=== PATIENT | female | born 1985 | race Caucasian/White ===

== ENCOUNTER 2022-09-14 03:34 | Emergency (ER) | payer OTHER ==
[~2022-09-14] VITALS: Ht 165.1 cm; Wt 55.0 kg
[2022-09-14 03:40] VITALS: O2SAT 99
[2022-09-14] MEDS ORDERED: ACETAMINOPHEN 325MG TABLET PO STA (04:06)
[2022-09-14] MEDS ORDERED: BACITRACIN ZINC OINT UDPKT TOP ONE (04:15)
[2022-09-14] MEDS ORDERED: LIDOCAINE HCL/PF 1% 10 MG/ML 5ML VIAL INFIL ONE (04:15)
[2022-09-14] MEDS ORDERED: LIDOCAINE HCL/EPINEPHRINE 1%-EPI 1:100,000 20 ML VIAL INFIL ONE (05:30)
[2022-09-14] MEDS ORDERED: IBUP-2029 PO (06:10)
[2022-09-14] MEDS ORDERED: IBUPROFEN 600MG TABLET PO STA (06:19)
[2022-09-14 08:02] VITALS: BP 126/82; PULSE 90; RESP 17; TEMP 97.9
== END 2022-09-14 08:05 ==
LOC: ER 05:34
DX: S51.811A Laceration without foreign body of right forearm, initial encounter (principal); S61.511A Laceration without foreign body of right wrist, initial encounter; S61.012A Laceration without foreign body of left thumb without damage to nail, initial encounter; W25.XXXA Contact with sharp glass, initial encounter; Y93.89 Activity, other specified; Y92.89 Other specified places as the place of occurrence of the external cause; Y99.8 Other external cause status
CPT/HCPCS: 12004; 12054; 73090; 73110; 73552; 99284; J3490